=== PATIENT | female | born 1990 | race African-American/Black ===

== ENCOUNTER 2016-12-17 15:27 | Emergency (ER) | payer OTHER ==
[2016-12-17 15:44] VITALS: TEMP 97.7; BMI 28.1
--- NOTE | 2016-12-17 15:47 | PDOC ---
Rapid Medical Evaluation Chief Complaint: Abscess Boil Time Seen by Provider: 12/17/16 15:43 Medical Evaluation: Allergies Allergy/AdvReac Type Severity Reaction Status Date / Time No Known Allergies Allergy Verified 12/17/16 15:40 Vital Signs Temp Pulse Resp BP Pulse Oxdays' hx same 97.7 F 72 18 111/71 100 12/17/16 15:41 12/17/16 15:41 12/17/16 15:41 12/17/16 15:41 12/17/16 15:41 12/17/16 15:44 Brief in person evaluation done; CC abscess to Labia x 3 days not observable in triage U preg sent
--- NOTE | 2016-12-17 17:07 | PDOC ---
History of Present Illness <CornelYennifermarin Thorpe - Last Filed: 12/17/16 17:15> - History of Present Illness Initial Comments: 12/17/16 17:42 The patient is a 26 year old female, with a significant past medical history of bartholin cysts, who presents to the emergency department with a painful bartholin cyst for a couple of days. She denies urinary complaints or abnormal vaginal discharge. The patient denies having marsupialization despite recommendation from her Office Mover. She reports this is her 5th experience with this cyst in 2 years. She also refuses packing today. She denies fever, chills, nausea, vomit, diarrhea and constipation. Allergies: NKDA <Stephanie Rice - Last Filed: 12/17/16 17:47> - General Chief Complaint: Abscess Boil Stated Complaint: ABSCESS/ LOWER PELVIC PAIN Time Seen by Provider: 12/17/16 15:43 Past History - Past Medical History Other medical history: none - Reproductive History (#): 3 Para: 2 - Psycho/Social/Smoking Cessation Hx Anxiety: No Suicidal Ideation: No Smoking History: Never smoked Have you smoked in the past 12 months: No Number of Cigarettes Smoked Daily: 3 Information on smoking cessation initiated: Yes 'Breaking Loose' booklet given: 12/17/16 Hx Alcohol Use: No Drug/Substance Use Hx: No Substance Use Type: None Hx Substance Use Treatment: No <CornelYennifermarin Thorpe - Last Filed: 12/17/16 17:15> <Stephanie Rice - Last Filed: 12/17/16 17:47> - Past Medical History Allergies/Adverse Reactions: Allergies Allergy/AdvReac Type Severity Reaction Status Date / Time No Known Allergies Allergy Verified 12/17/16 15:40 Home Medications: Ambulatory Orders NK [No Known Home Medication] 12/17/16 Sulfamethoxazole/Trimethoprim [Bactrim Ds -] 1 tab PO BID #10 tablet 12/17/16 Review of Systems - Review of Systems Able to Perform ROS?: Yes Comments:: 12/17/16 17:42 CONSTITUTIONAL: Absent: fever, no chills, no fatigue EYES: Absent: visual changes ENT: Absent: ear pain, no sore throat CARDIOVASCULAR: Absent: chest pain, no palpitations RESPIRATORY: Absent: cough, no SOB GI: Absent: abdominal pain, no nausea, no vomiting, no constipation, no diarrhea GENITOURINARY: (+) painful bartholin cyst. Absent: dysuria, no frequency, no hematuria MUSCULOSKELETAL: Absent: back pain, no arthralgia, no myalgia SKIN: Absent: rash NEURO: Absent: headache <Stephanie Rice - Last Filed: 12/17/16 17:47> *Physical Exam - Vital Signs Last Vital Signs Temp Pulse Resp BP Pulse Ox 97.7 F 72 18 111/71 100 12/17/16 15:41 12/17/16 15:41 12/17/16 15:41 12/17/16 15:41 12/17/16 15:41 <Yennifer Unger - Last Filed: 12/17/16 17:15> - Vital Signs Last Vital Signs Temp Pulse Resp BP Pulse Ox 97.7 F 72 18 111/71 100 12/17/16 15:41 12/17/16 15:41 12/17/16 15:41 12/17/16 15:41 12/17/16 15:41 - Physical Exam Comments: 12/17/16 17:43 GENERAL: Well-appearing, well-nourished. No apparent distress. HEENT: Normocephalic, atraumatic. PERRL, EOM intact. CARDIOVASCULAR: Normal S1, S2. Regular rate and rhythm. PULMONARY: Clear to auscultation bilaterally. ABDOMEN: Soft, non-distended, non-tender. EXTREMITIES: Normal ROM in all four extremities. No gross deformities. SKIN: Warm, dry. No rash NEUROLOGICAL: No focal neurological deficits. PELVIC: (+) 3.5cm x 5cm bartholin cyst on left labia. <Stephanie Rice - Last Filed: 12/17/16 17:47> Procedures - Incision and Drainage I&D Site: Left: Bartholin Betadine cleansed: Yes Anesthesia: 1% Lidocaine Volume(ml): 5 Blade Size: 11 Attempts: 1 Plain Packing: No (pt refused packing) Complications: none <Yennifer Unger - Last Filed: 12/17/16 17:15> ED Treatment Course - ADDITIONAL ORDERS Additional order review: Laboratory Results 12/17/16 16:20 Urine HCG, Qual Negative <Stephanie Rice - Last Filed: 12/17/16 17:47> *DC/Admit/Observation/Transfer <Yennifer Unger - Last Filed: 12/17/16 17:15> - Attestations Scribe Attestion: 12/17/16 17:47 Documentation prepared by Stephanie Rice, acting as medical coder for Yennifer Unger MD <Stephanie Rice - Last Filed: 12/17/16 17:47> Diagnosis at time of Disposition: Bartholin's gland abscess - Discharge Dispostion Disposition: HOME Condition at time of disposition: Stable - Prescriptions Prescriptions: Sulfamethoxazole/Trimethoprim [Bactrim Ds -] 1 tab PO BID #10 tablet - Referrals Referrals: Camiol Mccarty [Primary Care Provider] - - Patient Instructions Printed Discharge Instructions: DI for Incision and Drainage of a Skin Abscess , Bartholin Gland Cyst Additional Instructions: please turkey picker your antibiotics at your pharmacy please follow up with your size stamper
[2016-12-17 17:47] VITALS: BP 102/62; PULSE 85
== END 2016-12-17 17:47 | disposition home or self-care (01) ==
LOC: JER 15:27
PROC: 0U9LXZZ Drainage of Vestibular Gland, External Approach (ICD-10-PCS; principal; 2016-12-17)
DX: N75.1 Abscess of Bartholin's gland (principal)
CPT/HCPCS: 56420; 84703; 87070; 87205; 99282-25

== ENCOUNTER 2017-02-06 12:38 | Emergency (ER) | payer OTHER ==
[2017-02-06 12:44] VITALS: BP 117/73; PULSE 107; TEMP 98.2; BMI 27.9
--- NOTE | 2017-02-06 15:53 | PDOC ---
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 PAtient states "it just flared up yesterday and now I can barely sit or walk." Denies fever, chills, vomiting, diarrhea. PAST MEDICAL HISTORY: Denies past medical history FAMILY HISTORY: Denies SOCIAL HISTORY: Current some day smoker, 3 cigarettes on days smoked. Denies alcohol, illicit drug use. SURGICAL HISTORY: Denies ALLERGIES: No known drug allergies REVIEW OF SYSTEMS General/Constitutional: Denies fever or chills. Denies weakness, weight change. HEENT: Denies change in vision. Denies ear pain or discharge. Denies sore throat. Cardiovascular: Denies chest pain or shortness of breath. Respiratory: Denies cough, wheezing, or hemoptysis. Gastrointestinal: Denies nausea, vomiting, diarrhea or constipation. Denies rectal bleeding. Genitourinary: Denies dysuria, frequency, or change in urination. Musculoskeletal: Denies joint or muscle swelling or pain. Denies neck or back pain. Skin: Cyst to vagina. Denies rash or easy bruising. PHYSICAL EXAM General Appearance: Well-appearing, appropriately dressed. No apparent distress. HEENT: EOMI, PERRLA. No conjunctival pallor. No photophobia, scleral icterus. Respiratory/Chest: Lungs CTAB. Cardiovascular: RRR. S1, S2. Musculoskeletal/Extremities: Normal inspection. FROM of all extremities, normal capillary refill. No tenderness to extremities, pedal edema, swelling, erythema or deformity. Integumentary: 8cm x 5cm fluctuant Bartholin's cyst to left labia. Appropriate color, dry, warm. No cyanosis, erythema, jaundice or rash Neurologic: police or patrol park officer II-XII intact. Fully oriented, alert. Appropriate mood/affect. Motor strength 5/5. No appreciable EOM palsy, facial droop or sensory deficit. Past History - Past Medical History Allergies/Adverse Reactions: Allergies Allergy/AdvReac Type Severity Reaction Status Date / Time No Known Allergies Allergy Verified 02/06/17 12:44 Home Medications: Ambulatory Orders Sulfamethoxazole/Trimethoprim [Bactrim Ds -] 1 tab PO BID #14 tablet 02/06/17 Other medical history: PATIENT DENIES MEDICAL HISTORY - Reproductive History (#): 3 Para: 2 - Psycho/Social/Smoking Cessation Hx Anxiety: No Suicidal Ideation: No Smoking History: Current some day smoker Have you smoked in the past 12 months: No Number of Cigarettes Smoked Daily: 3 Information on smoking cessation initiated: No 'Breaking Loose' booklet given: 12/17/16 Hx Alcohol Use: Yes (OCCASIONALLY) Drug/Substance Use Hx: No Substance Use Type: None Hx Substance Use Treatment: No *Physical Exam - Vital Signs Last Vital Signs Temp Pulse Resp BP Pulse Ox 98.2 F 107 H 18 117/73 97 02/06/17 12:40 02/06/17 12:40 02/06/17 12:40 02/06/17 12:40 02/06/17 12:40 Procedures - Incision and Drainage I&D Site: Left: Bartholin Betadine cleansed: Yes Anesthesia: 1% Lidocaine Volume(ml): 8 Blade Size: 11 Attempts: 1 Plain Packing: No Dressing: Yes (dry gauze) Progress: 02/06/17 15:52 Patient unable to tolerate incision greater than 1 cm, requested to stop procedure. Patient refused packing and states "it always falls out anyway, and it hurts too much to get it." Medical Decision Making - Medical Decision Making 02/06/17 16:00 26 yo F presents to fast track with Bartholin's cyst. -I&D (see procedure note) -Bactrim po bid Patient states she is to have marsupialization procedure done on 03/01. Advised patient to take medication as prescribed and follow up with surgeon as planned. Advised patient of signs and symptoms for return to ED. Patient verbalized understanding and agrees to plan. *DC/Admit/Observation/Transfer Diagnosis at time of Disposition: Infected cyst of Bartholin's gland duct - Discharge Dispostion Disposition: HOME Condition at time of disposition: Stable Admit: No - Prescriptions Prescriptions: Sulfamethoxazole/Trimethoprim [Bactrim Ds -] 1 tab PO BID #14 tablet - Referrals Referrals: Camilo Mccarty [Primary Care Provider] - - Patient Instructions Printed Discharge Instructions: DI for Incision and Drainage of a Skin Abscess Additional Instructions: Please take medications as prescribed and follow up with your primary care doctor. Please keep your appointment for the marsupialization on 03/01. If you experience any fever, nausea, vomiting, diarrhea, or any new or worsening symptoms, please return to the ER.
== END 2017-02-06 16:10 | disposition home or self-care (01) ==
LOC: JERFT 12:38
PROC: 0U9LXZZ Drainage of Vestibular Gland, External Approach (ICD-10-PCS; principal; 2017-02-06)
DX: N75.0 Cyst of Bartholin's gland (principal)
CPT/HCPCS: 56420; 87070; 87205; 99282-25

== ENCOUNTER 2017-08-13 10:10 | Emergency (ER) | payer OTHER ==
[2017-08-13 10:17] VITALS: BP 134/81; PULSE 105; TEMP 97.9; BMI 30.4
--- NOTE | 2017-08-13 12:25 | PDOC ---
History of Present Illness - General Chief Complaint: Pain Stated Complaint: CYST Time Seen by Provider: 08/13/17 11:09 History Source: Patient Exam Limitations: No Limitations - History of Present Illness Initial Comments: 08/13/17 12:18 Current Bartholin's cyst to the left side. States has had multiple incidents of incision and drainage primarily done in the emergency department. Has an appointment with [facility] doctor Crystal Ko for excision of cyst for definitive treatment. Denies fever, but states is exquisitely painful. 08/13/17 19:54 Occurred: reports: just prior to arrival Severity: reports: moderate, severe Pain Location: reports: pelvis (left Bartholin's) Associated Symptoms (Fall): denies symptoms Past History - Travel Traveled outside of the country in the last 30 days: No Close contact w/someone who was outside of country & ill: No - Past Medical History Allergies/Adverse Reactions: Allergies Allergy/AdvReac Type Severity Reaction Status Date / Time No Known Allergies Allergy Verified 08/13/17 10:11 Home Medications: Ambulatory Orders Sulfamethoxazole/Trimethoprim [Bactrim *Ds*] 1 each PO BID #14 tablet 08/13/17 COPD: No - Reproductive History (#): 3 Para: 2 - Suicide/Smoking/Psychosocial Hx Smoking History: Former smoker Have you smoked in the past 12 months: Yes Number of Cigarettes Smoked Daily: 0 If you are a former smoker, when did you quit?: 3 MONTHS Information on smoking cessation initiated: No 'Breaking Loose' booklet given: 12/17/16 Hx Alcohol Use: No Drug/Substance Use Hx: No Substance Use Type: None Hx Substance Use Treatment: No Review of Systems - Review of Systems Able to Perform ROS?: Yes Is the patient limited Lithuanian proficient: Yes Constitutional: Yes: Symptoms Reported, See HPI, Chills, Malaise. No: Fever HEENTM: Yes: See HPI. No: Symptoms Reported Respiratory: Yes: See HPI. No: Symptoms reported : Yes: Symptoms Reported, See HPI, Lesions (Bartholin cyst to the left labial area) Integumentary: Yes: Symptoms Reported, See HPI All Other Systems: Reviewed and Negative *Physical Exam - Vital Signs Last Vital Signs Temp Pulse Resp BP Pulse Ox 97.9 F 105 H 18 134/81 98 08/13/17 10:12 08/13/17 10:12 08/13/17 10:12 08/13/17 10:12 08/13/17 10:12 - Physical Exam General Appearance: Yes: Nourished, Appropriately Dressed, Apparent Distress, Moderate Distress HEENT: positive: ALLEN, Normal ENT Inspection, TMs Normal, Pharynx Normal Female Pelvic Exam: positive: Bartholin mass (exquisite tender 7cm x 7cm tense fluctuant abscess ). negative: normal external exam Gastrointestinal/Abdominal: positive: Soft. negative: Normal Bowel Sounds Musculoskeletal: positive: Normal Inspection Extremity: positive: Normal Capillary Refill, Normal Inspection Integumentary: positive: Normal Color Neurologic: positive: die reamer II-XII NML intact, Fully Oriented, Alert, Normal Mood/ Affect, Normal Response, Motor Strength 5/5 Procedures - Incision and Drainage I&D Site: Left: Bartholin Betadine cleansed: Yes Anesthesia: 1% Lidocaine Blade Size: 11 Complications: none Progress: 08/13/17 19:56 word catheter placed Progress Note - Progress Note Progress Note: Bartholin's cyst incision and drainage, Word catheter placed without incident. We'll start on Bactrim and patient to follow-up with [facility] for removal and ultimate Bartholin's gland removal. *DC/Admit/Observation/Transfer Diagnosis at time of Disposition: Infected cyst of Bartholin's gland duct - Discharge Dispostion Disposition: HOME Condition at time of disposition: Stable Admit: No - Prescriptions Prescriptions: Sulfamethoxazole/Trimethoprim [Bactrim *Ds*] 1 each PO BID #14 tablet - Referrals Referrals: Camilo Mccarty [Primary Care Provider] - - Patient Instructions Printed Discharge Instructions: DI for Bartholin Gland Cyst Additional Instructions: Rest, keep area elevated. Avoid strenuous activity or exercise until wound is healed Use hot soaks to area to bring more blood to the surface and encourage drainage May change dressings as needed to keep clean - trying to avoid removal of catheter Allow water from shower to wash area thoroughly for 2-3 minutes, and pat dry upon exit of shower and replace dressing. Change his dressing daily until the wound is completely healed. May use Tylenol or Motrin for mild pain relief Continue all medications as prescribed Followup with private physician in 2-3 days for wound check Return to emergency Department for worsening swelling, pain, redness, fevers as needed - Post Discharge Activity Forms/Work/School Notes: Back to Work
== END 2017-08-13 12:27 | disposition home or self-care (01) ==
LOC: JER 10:10 → JERFT 10:10
PROC: 0U9L0ZZ Drainage of Vestibular Gland, Open Approach (ICD-10-PCS; principal; 2017-08-13)
DX: N75.0 Cyst of Bartholin's gland (principal)
CPT/HCPCS: 56420; 99281-25

== ENCOUNTER 2018-01-25 03:51 | Emergency (ER) | payer SELFPAY ==
--- NOTE | 2018-01-25 04:08 | PDOC ---
History of Present Illness - General Stated Complaint: ABDOMINAL PAIN,VAGINAL BLEEDING Time Seen by Provider: 01/25/18 03:55 History Source: Patient Exam Limitations: No Limitations - History of Present Illness Travel History: No Initial Comments: 01/25/18 06:51 Best Contact: Pmhx: N/A Pshx: C section x3 Allergies: NKDA LMP: 12/03/2017 27-year-old female presents to the ER complaining of vaginal bleed which is described as partial tissue staining when wiping after voiding 2 hours prior to her arrival to the ER. Patient denies nausea/vomiting, fever/chills, headache , dizziness, lightheadedness, chest pain, shortness of breath, abdominal pains, flank pains, urinary symptoms: Frequency/urgency/hesitancy, hematuria. Patient states she realized she was through a home tests 5 days ago. No care. Past History - Past Medical History Allergies/Adverse Reactions: Allergies Allergy/AdvReac Type Severity Reaction Status Date / Time No Known Allergies Allergy Verified 01/25/18 04:18 Home Medications: Ambulatory Orders NK [No Known Home Medication] 01/25/18 COPD: No - Reproductive History (#): 3 Para: 2 - Suicide/Smoking/Psychosocial Hx Smoking History: Former smoker Have you smoked in the past 12 months: Yes Number of Cigarettes Smoked Daily: 0 If you are a former smoker, when did you quit?: 3 MONTHS 'Breaking Loose' booklet given: 12/17/16 Hx Alcohol Use: No Drug/Substance Use Hx: No Substance Use Type: None Hx Substance Use Treatment: No Review of Systems - Review of Systems Able to Perform ROS?: Yes Comments:: 01/25/18 06:56 CONSTITUTIONAL: Absent: fever, chills, diaphoresis, generalized weakness, malaise, loss of appetite HEENT: Absent: rhinorrhea, nasal congestion, throat pain, throat swelling, difficulty swallowing, mouth swelling, ear pain, eye pain, visual Changes CARDIOVASCULAR: Absent: chest pain, loss of consciousness, palpitations, irregular heart rate, peripheral edema RESPIRATORY: Absent: cough, shortness of breath, dyspnea with exertion, orthopnea, wheezing, stridor, hemoptysis GASTROINTESTINAL: +vaginal bleed Absent: abdominal pain, abdominal distension, nausea, vomiting, diarrhea, constipation, melena, hematochezia GENITOURINARY: Absent: dysuria, frequency, urgency, hesitancy, hematuria, flank pain, genital pain MUSCULOSKELETAL: Absent: myalgia, arthralgia, joint swelling SKIN: Absent: rash, itching, pallor Is the patient limited Zambian proficient: No *Physical Exam - Physical Exam Comments: 01/25/18 06:56 GENERAL: Well developed, well nourished. Awake and alert. No acute distress. HEENT: Normocephalic, atraumatic. PERRLA, EOMI. No conjunctival pallor. Sclera are non- icteric. Moist mucous membranes. Oropharynx is clear. NECK: Supple. Full ROM. No JVD. Carotid pulses 2+ and symmetric, without bruits. No thyromegaly. No lymphadenopathy. CARDIOVASCULAR: Regular rate and rhythm. No murmurs, rubs, or gallops. Distal pulses are 2+ and symmetric. PULMONARY: No evidence of respiratory distress. Lungs clear to auscultation bilaterally. No wheezing, rales or rhonchi. ABDOMINAL: Soft. Non-tender. Non-distended. No rebound or guarding. No organomegaly. Normoactive bowel sounds. MUSCULOSKELETAL Normal range of motion at all joints. No bony deformities or tenderness. No CVA tenderness. EXTREMITIES: No cyanosis. No clubbing. No edema. No calf tenderness. SKIN: Warm and dry. Normal capillary refill. No rashes. No jaundice. Pelvic: External genitalia normal without lesions. Vaginal vault is clear without blood or discharge. Cervix is long and closed. ED Treatment Course - LABORATORY CBC & Chemistry Diagram: 01/25/18 04:03 01/25/18 04:03 - RADIOLOGY Radiology Studies Ordered: Category Date Time Status TRANSVAGINAL US PREG [US] Stat Ultrasound 01/25/18 03:54 Ordered Radiograph Interpretation: 01/25/18 06:57 Transvaginal US: Progress Note - Progress Note Progress Note: 0701hrs: Signed out to YAKOV Adamson *DC/Admit/Observation/Transfer Diagnosis at time of Disposition: Vaginal bleeding in - Discharge Dispostion Disposition: HOME Condition at time of disposition: Stable - Referrals Referrals: Eliz Roman MD [Staff Physician] - - Patient Instructions Additional Instructions: Discharge instructions 1. Please follow up with your primary physician/ [facility] P[facility]CHER within the next few days and explain that you have been seen here in the Emergency Room. 2. If you experience any worsening of symptoms, such as heavy bleeding, increase pain or clotting please return to the ER 3. Rest, no sexual intercourse during this time, no douching, no tampon use. No heavy lifting or bending. I have given you a copy of your labs and ultrasound report. Please bring this with you to your [facility] or when you return here on Saturday. 4. Drink plenty of water, take tylenol for pain only - Post Discharge Activity Forms/Work/School Notes: Back to Work
[2018-01-25 04:12] LABS: BASO % 1.5 % (0-2.0); EOS % 4.8 % (0-4.5); HEMATOCRIT 35.7 % (32.4-45.2); HEMOGLOBIN 12.4 GM/dL (10.7-15.3); LYMPH % 37.5 % (8-40); MCH 29.9 pg (25.7-33.7); MCHC 34.6 g/dl (32.0-36.0); MEAN CELL VOLUME 86.4 fl (80-96); MEAN PLT VOLUME 8.8 fl (7.5-11.1); MONO % 10.8 % (3.8-10.2); NEUT % 45.4 % (42.8-82.8); PLATELET COUNT 339 K/MM3 (134-434); RBC 4.13 M/mm3 (3.60-5.2); RDW 13.2 % (11.6-15.6); WHITE BLOOD COUNT 4.7 K/mm3 (4.0-10.0)
[2018-01-25 04:29] LABS: URINE APPEARANCE CLOUDY; URINE BILIRUBIN NEGATIVE (<2.0 mg/dL); URINE BLOOD 3+ (NEGATIVE); URINE COLOR DKYELLOW; URINE GLUCOSE (UA) NEGATIVE (NEGATIVE); URINE KETONE NEGATIVE (NEGATIVE); URINE NITRITE NEGATIVE (NEGATIVE); URINE UROBILINOGEN 4.0 E.U/dl mg/dL (0.2-1.0)
[2018-01-25 04:32] LABS: URINE LEUK ESTERASE 1+ (NEGATIVE); URINE PROTEIN 1+ (NEGATIVE)
[2018-01-25 04:35] LABS: EPI CELLS MANY /HPF (FEW); URINE BACTERIA FEW /hpf (NONE SEEN); URINE MUCUS FEW
[2018-01-25 04:40] LABS: ALBUMIN 3.4 g/dl (3.4-5.0); ANION GAP 7 (8-16); BILIRUBIN,TOTAL 0.3 mg/dL (0.2-1.0); BLOOD UREA NITROGEN 14 mg/dL (7-18); CALCIUM 8.6 mg/dL (8.5-10.1); CHLORIDE 109 mmol/L (98-107); CO2 24 mmol/L (21-32); CREATININE 0.7 mg/dL (0.55-1.02); GLUCOSE,RANDOM 82 mg/dL (74-106); POTASSIUM 3.8 mmol/L (3.5-5.1); SGOT/AST 15 U/L (15-37); SGPT/ALT 18 U/L (12-78); SODIUM 140 mmol/L (136-145); TOT PROT 6.8 g/dl (6.4-8.2)
[2018-01-25 04:56] LABS: ALK PHOS 63 U/L (45-117)
[2018-01-25 06:46] VITALS: TEMP 98.7; BMI 29.2
--- NOTE | 2018-01-25 08:53 | PDOC ---
*Physical Exam - Vital Signs Last Vital Signs Temp Pulse Resp BP Pulse Ox 98.7 F 75 20 132/75 100 01/25/18 04:18 01/25/18 04:18 01/25/18 04:18 01/25/18 04:18 01/25/18 04:18 - Physical Exam HEENT: positive: Normal Voice Respiratory/Chest: positive: Lungs Clear Cardiovascular: positive: Regular Rate Female Pelvic Exam: positive: other (done earlier by YAKOV Guerrero) Gastrointestinal/Abdominal: positive: Flat, Soft Integumentary: positive: Dry, Warm ED Treatment Course - LABORATORY CBC & Chemistry Diagram: 01/25/18 04:03 01/25/18 04:03 - ADDITIONAL ORDERS Additional order review: Laboratory Results 01/25/18 01/25/18 01/25/18 04:03 04:03 04:03 Sodium 140 Potassium 3.8 Chloride 109 H Carbon Dioxide 24 Anion Gap 7 L BUN 14 Creatinine 0.7 Creat Clearance w eGFR > 60 Random Glucose 82 Calcium 8.6 Total Bilirubin 0.3 AST 15 ALT 18 Alkaline Phosphatase 63 Total Protein 6.8 Albumin 3.4 Beta HCG, Quant 14578.8 Urine Color Dkyellow Urine Appearance Cloudy Urine pH 6.0 Ur Specific Kimball 1.029 Urine Protein 1+ H Urine Glucose (UA) Negative Urine Ketones Negative Urine Blood 3+ H Urine Nitrite Negative Urine Bilirubin Negative Urine Urobilinogen 4.0 e.u/dl H Ur Leukocyte Esterase 1+ H Urine WBC (Auto) 16 Urine RBC (Auto) 3 Ur Epithelial Cells Many Urine Bacteria Few Urine Mucus Few Blood Type A POSITIVE Antibody Screen Negative 01/25/18 04:03 RBC 4.13 MCV 86.4 MCHC 34.6 RDW 13.2 MPV 8.8 Neutrophils % 45.4 D Lymphocytes % 37.5 D Monocytes % 10.8 H Eosinophils % 4.8 H D Basophils % 1.5 Medical Decision Making - Medical Decision Making 01/25/18 08:42 I have received report from YAKOV Guerrero regarding this patient. Pt's initial chief complaint:vaginal bleeding with + home test Pt's work up completed prior to sign out:labs with + beta [id number], pelvic exam completed without heavy bleeding noted. Pt treatment given from prior staff:pending tv us Pt plan to be completed: follow up us Dispo:home Pt ultra sound shows intrauterine 5 weeks without a heart rate suggests demise and impending . Discussed with pt possible impending miscarrage. Instruct to follow up on Saturday with OCCUPATIONAL PHYSICIAN or return to ER for heavy bleeding, pain, and follow up for retained products and trending HCG. Copy of reports given to pt if she choses to follow up elsewhere. Pt currently is not vaginally bleeding. *DC/Admit/Observation/Transfer Diagnosis at time of Disposition: Vaginal bleeding in - Discharge Dispostion Disposition: HOME Condition at time of disposition: Stable Admit: No - Referrals Referrals: Eliz Roman MD [Staff Physician] - - Patient Instructions Printed Discharge Instructions: DI for Threatened Additional Instructions: Discharge instructions 1. Please follow up with your primary physician/ OCCUPATIONAL PHYSICIAN within the next few days and explain that you have been seen here in the Emergency Room. 2. If you experience any worsening of symptoms, such as heavy bleeding, increase pain or clotting please return to the ER 3. Rest, no sexual intercourse during this time, no douching, no tampon use. No heavy lifting or bending. I have given you a copy of your labs and ultrasound report. Please bring this with you to your OCCUPATIONAL PHYSICIAN or when you return here on Saturday. 4. Drink plenty of water, take tylenol for pain only - Post Discharge Activity Forms/Work/School Notes: Back to Work
[2018-01-25 09:13] VITALS: BP 129/65; PULSE 72
== END 2018-01-25 09:13 | disposition home or self-care (01) ==
LOC: JER 03:51
DX: O26.891 Other specified pregnancy related conditions, first trimester (principal); O20.0 Threatened abortion; Z3A.01 Less than 8 weeks gestation of pregnancy; F17.210 Nicotine dependence, cigarettes, uncomplicated
CPT/HCPCS: 36415; 76817-TC; 80053; 81003; 81015; 84702; 85025; 86850; 86900; 86901; 99283-25

== ENCOUNTER 2018-01-27 09:53 | Emergency (ER) | payer SELFPAY ==
[2018-01-27 09:59] VITALS: BP 116/77; PULSE 74; TEMP 98.6; BMI 30.9
--- NOTE | 2018-01-27 10:32 | PDOC ---
History of Present Illness - General Chief Complaint: [facility] Stated Complaint: FOLLOW UP History Source: Patient Exam Limitations: No Limitations - History of Present Illness Initial Comments: 01/27/18 11:39 This 27-year-old female returned to the emergency room for evaluation of a possible miscarriage. She underwent a transvaginal ultrasound that showed no heart rate to a 5 week fetus. Her hCG was over 12,000. She still continues to have some vaginal bleeding. She is now here for reevaluation and trending of her beta hCG. Past History - Past Medical History Allergies/Adverse Reactions: Allergies Allergy/AdvReac Type Severity Reaction Status Date / Time No Known Allergies Allergy Verified 01/27/18 09:56 Home Medications: Ambulatory Orders NK [No Known Home Medication] 01/25/18 COPD: No DVT: No - Reproductive History (#): 3 Para: 2 - Suicide/Smoking/Psychosocial Hx Smoking History: Never smoked Have you smoked in the past 12 months: Yes Number of Cigarettes Smoked Daily: 0 If you are a former smoker, when did you quit?: 3 MONTHS Information on smoking cessation initiated: No 'Breaking Loose' booklet given: 12/17/16 Hx Alcohol Use: No Drug/Substance Use Hx: No Substance Use Type: None Hx Substance Use Treatment: No Review of Systems - Review of Systems Able to Perform ROS?: Yes All Other Systems: Reviewed and Negative *Physical Exam - Vital Signs Last Vital Signs Temp Pulse Resp BP Pulse Ox 98.6 F 74 18 116/77 100 01/27/18 09:56 01/27/18 09:56 01/27/18 09:56 01/27/18 09:56 01/27/18 09:56 - Physical Exam Comments: 01/27/18 11:47 General Appearance: This well appearing 27-year-old female V/S: hemodynamically stable, afebrile Skin: WNL of pt's skin color, no signs of pallor, mottling, cyanosis Head:symmetrical Eyes: EOM's intact, PERRLA Ears: denies pain Nose: patent Throat: lips, teeth, gums, tongue, buccal mucos pink and moist Lungs: Chest symmetry equal. Cap refill <3 seconds. Lung sounds clear Cardiac: PMI at R 4MCL space, pos S1 and S2, regular rate. Abdomen: Soft, round, nontender : Not observed Muscularskeletal: Gait steady, ambulated in to ER, no edema +PMS Neuro: AAOx3, cognitively intact, speech clear and appropriate. Medical Decision Making - Medical Decision Making 01/27/18 11:47 Transvaginal ultrasound Beta hCG 01/27/18 12:30 beta hcg trending up but u/s is showing single intreuterine with no heart rate spoke with Dr. Lee, [employer] who suggests that this is probably not viable due to no heart rate and deformed sac but will need to have a check in the clinic for progression. Pt has full understanding. *DC/Admit/Observation/Transfer Diagnosis at time of Disposition: Vaginal bleeding in - Discharge Dispostion Condition at time of disposition: Stable Admit: No - Referrals Referrals: Camilo Mccarty [Primary Care Provider] - - Patient Instructions Printed Discharge Instructions: DI for Miscarriage Additional Instructions: Discharge instructions 1. Please follow up with your primary physician within the next few days and explain that you have been seen here in the Emergency Room. Follow up in the [facility] at [address] [place] [address] in one week 2. If you experience any worsening of symptoms, please return to the ER 3. Rest, 4. Drink plenty of water - Post Discharge Activity
== END 2018-01-27 12:35 | disposition home or self-care (01) ==
LOC: JERFT 09:53
DX: O26.891 Other specified pregnancy related conditions, first trimester (principal); O36.80X0 Pregnancy with inconclusive fetal viability, not applicable or unspecified; Z3A.01 Less than 8 weeks gestation of pregnancy
CPT/HCPCS: 36415; 76817-TC; 84702; 99281-25

== ENCOUNTER 2020-05-05 15:23 | Emergency (ER) | payer SELFPAY ==
--- NOTE | 2020-05-05 16:02 | PDOC ---
Rapid Medical Evaluation Time Seen by Provider: 05/05/20 16:00 Medical Evaluation: Allergies Allergy/AdvReac Type Severity Reaction Status Date / Time No Known Allergies Allergy Verified 02/05/18 14:48 05/05/20 16:00 29 year old female with no pmhx complaining of ear pain since Saturday, no fever, or discharge. Recent swimming. PE: Unable to assess Plan Pt to precede to ED for further treatment and care
[2020-05-05 16:04] VITALS: BP 135/67; PULSE 67; TEMP 98.7; BMI 36.3
--- NOTE | 2020-05-05 16:39 | PDOC ---
History of Present Illness - General Chief Complaint: Ear Problem Stated Complaint: LOSS OF HEARING Time Seen by Provider: 05/05/20 16:00 History Source: Patient Exam Limitations: Clinical Condition - History of Present Illness Initial Comments: 05/05/20 16:44 Patient with no significant past medical history present with complaint of left ear pain and decreased hearing left ear since yesterday status post going swimming yesterday. Patient reports she was swimming yesterday and felt a pop in sensation left ear and has been having decreased hearing left ear since then. Denies nausea, vomiting, dizziness. Denies any trauma or injury. Report history of tympanic membrane rupture as a child. Is this a multiple visit Asthma Patient?: No Timing/Duration: 24 hours Past History - Medical History Allergies/Adverse Reactions: Allergies Allergy/AdvReac Type Severity Reaction Status Date / Time No Known Allergies Allergy Verified 05/05/20 16:01 Home Medications: Ambulatory Orders Amox-Tr/K Cl [Augmentin - 875Mg Tablet] 1 tab PO BID #14 tablet 05/05/20 Ibuprofen 800 mg PO Q8H PRN #20 tablet 05/05/20 COPD: No DVT: No - Reproductive History (#): 3 Para: 2 Cervical CA: No Dysfunctional Uterine Bleeding: No Ectopic : No Endometrial CA: No Polycystic Ovaries: No Therapeutic (s) & number: Yes (1) - Psycho-Social/Smoking History Smoking History: Never smoked Have you smoked in the past 12 months: Yes Number of Cigarettes Smoked Daily: 0 If you are a former smoker, when did you quit?: 3 MONTHS Information on smoking cessation initiated: No 'Breaking Loose' booklet given: 12/17/16 - Substance Abuse Hx (Audit-C & DAST Scrn) How often the patient has a drink containing alcohol: Never Score: In Men: 4 or > Positive; In Women: 3 or > Positive: 0 Screen Result (Pos requires Nsg. Audit-10AR): Negative In the last yr the pt used illegal drug/Rx for NonMed reason: No Score: Yes response is considered Positive: 0 Screen Result (Positive result requires Nsg. DAST-10): Negative Review of Systems - Review of Systems Able to Perform ROS?: Yes Is the patient limited Italian proficient: No Constitutional: No: Diaphoresis, Fever HEENTM: Yes: Symptoms Reported, See HPI, Ear Pain (Left ear), Other (Decreased hearing left ear). No: Eye Pain, Blurred Vision, Tearing, Recent change in vision, Double Vision, Cataracts, Ocular Prothesis, Ear Discharge, Nose Pain, Nose Congestion, Tinnitus, Nose Bleeding, Hearing Loss, Throat Pain, Throat Swelling, Mouth Pain, Dental Problems, Difficulty Swallowing, Mouth Swelling Respiratory: No: Symptoms reported, See HPI, Cough, Orthopnea, Shortness of Breath, SOB with Exertion, SOB at Rest, Stridor, Wheezing, Productive cough, Hemoptysis, Other Cardiac (ROS): No: Symptoms Reported, See HPI, Chest Pain, Edema, Irregular Heart Rate, Lightheadedness, Palpitations, Syncope, Chest Tightness, Other ABD/GI: No: Nausea, Vomiting All Other Systems: Reviewed and Negative *Physical Exam - Vital Signs Last Vital Signs Temp Pulse Resp BP Pulse Ox 98.7 F 67 15 135/67 99 05/05/20 16:01 05/05/20 16:01 05/05/20 16:01 05/05/20 16:01 05/05/20 16:01 - Physical Exam 05/05/20 16:46 GENERAL: Well developed, well nourished. Awake and alert. No acute distress. HEENT: Ruptured left tympanic membrane with trace fluid to tympanic membrane. No blood in left ear. Right ear normal with normal tympanic membrane. Normocephalic, atraumatic. PERRLA, EOMI. No conjunctival pallor. Sclera are non- icteric. Moist mucous membranes. Oropharynx is clear. NECK: Supple. Full ROM. PULMONARY: No evidence of respiratory distress. MUSCULOSKELETAL Normal range of motion at all joints. SKIN: Warm and dry. Normal capillary refill. No rashes. No jaundice. NEUROLOGICAL: Alert, awake, appropriate. Gait is normal without ataxia. PSYCHIATRIC: Cooperative. Good eye contact. Appropriate mood General Appearance: Yes: Nourished, Appropriately Dressed. No: Apparent Distress Medical Decision Making - Medical Decision Making 05/05/20 16:44 Patient with no significant past medical history present with complaint of left ear pain and decreased hearing left ear since yesterday status post going swimming yesterday. Patient reports she was swimming yesterday and felt a pop in sensation left ear and has been having decreased hearing left ear since then. Denies nausea, vomiting, dizziness. Denies any trauma or injury. Report history of tympanic membrane rupture as a child. Exam significant for ruptured left tympanic membrane with mild fluid to tympanic membrane with no blood or active bleeding. Patient in no acute distress. Signed patient stable for discharge Augmentin antibiotics and ibuprofen as needed for pain and infection prophylaxis with ENT follow-up. Advised patient to refrain from putting any eardrops in left ear until her ENT follow-up. Patient voiced understanding and will follow-up with ENT Discharge - Discharge Information Problems reviewed: Yes Clinical Impression/Diagnosis: Perforated left tympanic membrane on examination Otic barotrauma Qualifiers: Encounter type: initial encounter Qualified Code(s): T70.0XXA - Otitic barotrauma, initial encounter Condition: Stable Disposition: HOME - Admission No - Additional Discharge Information Prescriptions: Amox-Tr/K Cl [Augmentin - 875Mg Tablet] 1 tab PO BID #14 tablet Ibuprofen 800 mg PO Q8H PRN #20 tablet PRN Reason: ear pain - Follow up/Referral Referrals: Maurizio Juarez MD [Staff Physician] - Lalo Osborne MD [Staff Physician] - - Patient Discharge Instructions Patient Printed Discharge Instructions: Eustachian Tube Dysfunction, DI for Barotrauma Additional Instructions: Your ear shows ruptured tympanic membrane. Take prescribed medication as prescribed and refrain from putting drops in left ear. Follow-up referred to ENT as soon as possible - Post Discharge Activity
== END 2020-05-05 17:05 | disposition home or self-care (01) ==
LOC: JERFT 15:23
DX: T70.0XXA Otitic barotrauma, initial encounter (principal)
CPT/HCPCS: 99283-25